=== PATIENT | male | born 1995 | race African-American/Black ===

== ENCOUNTER 2019-06-10 15:23 | Emergency (ER) | payer OTHER ==
[~2019-06-10] VITALS: Ht 177.8 cm; Wt 63.6 kg
[2019-06-10] MEDS ORDERED: PERTUSS(ACELL),DIPH,TET VAC/PF 0.5 ML VIAL IM ONE (16:00)
[2019-06-10 17:35] VITALS: BP 121/79
== END 2019-06-10 17:55 | disposition short-term general hospital (02) ==
LOC: EMS 15:24
DX: S01.111A Laceration without foreign body of right eyelid and periocular area, initial encounter (principal); W22.8XXA Striking against or struck by other objects, initial encounter; Y93.11 Activity, swimming; Y92.34 Swimming pool (public) as the place of occurrence of the external cause; Y99.8 Other external cause status
CPT/HCPCS: 90471; 90715